=== PATIENT | male | born 1990 | race Caucasian/White ===

== ENCOUNTER 2017-05-24 14:25 | Observation (INO) | payer OTHER ==
[2017-05-24] MEDS ORDERED: SODIUM CHLORIDE 0.9% 1,000 ML IV STA (14:55)
--- NOTE | 2017-05-24 15:05 | ED ---
General Adult HPI - General Chief complaint: Dental/Oral Stated complaint: Headache Time Seen by Provider: 05/24/17 14:42 Source: patient, RN notes reviewed Mode of arrival: ambulatory Limitations: no limitations - History of Present Illness Initial comments: Chief complaint and history of present illness a 27-year-old male with multiple complaints. The patient reports initially started off with a left earache 2 weeks ago after several days it went away. For the past 5 days he is complaining of discomfort to his teeth and left sublingual area. Now he has discomfort at the angle of the left jaw. Also discomfort to his left trapezius muscle causing a headache. No nausea no vomiting no fever no injuries. - Related Data Home Medications Medication Instructions Recorded Confirmed No Known Home Medications [No 05/24/17 05/24/17 Known Home Medications] Allergies Allergy/AdvReac Type Severity Reaction Status Date / Time acetaminophen [From Tylenol] AdvReac Unknown Verified 05/24/17 14:45 Review of Systems ROS Statement: Those systems with pertinent positive or pertinent negative responses have been documented in the HPI. Review of systems patient complains of headache on the left side of his head with left trapezius muscle discomfort increased with palpation. Also left teeth pain no visual acuity changes angle of the jaw on the left side without injury also is uncomfortable. Tenderness under the angle of the jaw without inflammation. No complaint of nausea vomiting or fever. No neuro deficits. All systems reviewed. 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 He reports needing transfusions on occasion when his hemoglobin drops 7. Has not needed one for a long time. This surgeries include splenectomy and cholecystectomy at the age 5 for 70 Remember. He did have gallstones time. Patient has had hand surgery because he punched some glass. The patient has adopted does not know his family history. He does not take Tylenol because of a splenectomy. The patient does smoke strongly encouraged to stop, denies alcohol use. Denies being exposed to chemicals at home or at work. ROS Other: All systems not noted in ROS Statement are negative. Past Medical History Additional Past Medical History / Comment(s): pyruvate kinase deficency , degenerative disc disorder History of Any Multi-Drug Resistant Organisms: None Reported Past Surgical History: Cholecystectomy Additional Past Surgical History / Comment(s): splenectomy Past Psychological History: No Psychological Hx Reported Smoking Status: Current every day smoker Past Alcohol Use History: Occasional Past Drug Use History: Marijuana General Exam - General Exam Comments Initial Comments: General: The patient is awake and alert, in because of complaints discomfort to the left side of his face. Vital signs temperature 98.0 pulse 97 respiratory rate is 16 pulse ox on percent room air blood pressure 145/73 Eye: Pupils are equal, round and reactive to light, extra-ocular movements are intact ; there is normal conjunctiva bilaterally. No signs of icterus. Ears, nose, mouth and throat: There are moist mucous membranes and no oral lesions. Teeth are very good no signs of decay, no cavities, no filled teeth. Pain when he clicks teeth Neck: Patient has complaint of tenderness at the angle of his left jaw. Also in the submandibular area left side no palpable lymph nodes. Cardiovascular: There is a regular rate and rhythm. No murmur, rub or gallop is appreciated. Respiratory: Lungs are clear to auscultation, respirations are non-labored, breath sounds are equal. No wheezes, stridor, rales, or rhonchi. Gastrointestinal: Soft, non-distended, non-tender abdomen without masses or organomegaly noted. There is no rebound or guarding present. No CVA tenderness. Bowel sounds are unremarkable. Back: There is no tenderness to palpation in the midline. There is no obvious deformity. No rashes noted. Musculoskeletal: Normal ROM, no tenderness, There is no pedal edema. There is no calf tenderness or swelling. Sensation intact. Pulses equal bilaterally 2+. Neurological: CN II-XII intact, There are no obvious motor or sensory deficits. Coordination appears grossly intact. Speech is normal. No focal or lateralizing findings Skin: Skin is warm and dry and no rashes or lesions are noted. No skin rashes Limitations: no limitations Course Vital Signs 05/24/17 05/24/17 14:35 16:06 Temperature 98 F Pulse Rate 97 86 Respiratory 16 18 Rate Blood Pressure 145/73 132/74 O2 Sat by Pulse 100 98 Oximetry Medical Decision Making - Medical Decision Making he requests a [place] for pain which he has taken before. The patient's labs show white count 20.9 hemoglobin 9 hematocrit 29.8. Amylase / lipase are within normal limits. Hand done differential on lab copy. Patient does have a history of 18 H deficiency. INR 1.0. Potassium 4.2 with a BUN 14 creatinine 0.65 and GFR greater than 60. Total bilirubin elevated at 2.9. CT the brain was done and reviewed by radiologist his findings are there is no acute intracranial hemorrhage, mass effect, or midline shift identified. The ventricles and sulci within normal limits in size. Probable choroidal fissure cyst on the right. The globes are intact and the visualized sinuses are remarkable for inflammatory change in the bilateral maxillary sinus, ethmoid air cells. Impression no acute intracranial hemorrhage, mass effect or midline shift seen. As read by Dr. Jalloh I discussed the case with on-call hospitalist Dr. Blood. He suggests starting the patient on Unasyn. He will determine consults after evaluation. - Lab Data Result diagrams: 05/24/17 15:05 05/24/17 15:05 Lab Results 05/24/17 05/24/17 05/24/17 Range/Units 15:05 15:05 15:05 WBC 20.9 H (3.8-10.6) k/uL RBC 2.58 L (4.30-5.90) m/uL Hgb 9.2 L (13.0-17.5) gm/dL Hct 29.8 L (39.0-53.0) % MCV 115.5 H (80.0-100.0) fL MCH 35.6 H (25.0-35.0) pg MCHC 30.8 L (31.0-37.0) g/dL RDW 14.5 (11.5-15.5) % Plt Count 723 H (150-450) k/uL Neutrophils % (Manual) 64 % Lymphocytes % (Manual) 21 % Monocytes % (Manual) 9 % Eosinophils % (Manual) 5 % Myelocytes % 2 % Neutrophils # (Manual) 13.38 H (1.3-7.7) k/uL Lymphocytes # (Manual) 4.39 (1.0-4.8) k/uL Monocytes # (Manual) 1.88 H (0-1.0) k/uL Eosinophils # (Manual) 1.05 H (0-0.7) k/uL Myelocytes # (Manual) 0.42 H (0) k/uL Nucleated RBCs 1 H (0-0) /100 WBC Manual Slide Review Performed Dohle Bodies Present Large Platelets Present Polychromasia Present Macrocytosis Marked Crenated Cell Present PT (9.0-12.0) sec INR (<1.2) Sodium 141 (137-145) mmol/L Potassium 4.2 (3.5-5.1) mmol/L Chloride 108 H (98-107) mmol/L Carbon Dioxide 24 (22-30) mmol/L Anion Gap 9 mmol/L BUN 14 (9-20) mg/dL Creatinine 0.65 L (0.66-1.25) mg/dL Est GFR (MDRD) Af Amer >60 (>60 ml/min/1.73 sqM) Est GFR (MDRD) Non-Af >60 (>60 ml/min/1.73 sqM) Glucose 91 (74-99) mg/dL Plasma Lactic Acid Dilip 0.7 (0.7-2.0) mmol/L Calcium 9.5 (8.4-10.2) mg/dL Total Bilirubin 2.9 H (0.2-1.3) mg/dL AST 26 (17-59) U/L ALT 37 (21-72) U/L Alkaline Phosphatase 82 (38-126) U/L Total Protein 7.8 (6.3-8.2) g/dL Albumin 4.8 (3.5-5.0) g/dL Amylase 51 (30-110) U/L Lipase 127 (23-300) U/L 05/24/17 Range/Units 15:05 WBC (3.8-10.6) k/uL RBC (4.30-5.90) m/uL Hgb (13.0-17.5) gm/dL Hct (39.0-53.0) % MCV (80.0-100.0) fL MCH (25.0-35.0) pg MCHC (31.0-37.0) g/dL RDW (11.5-15.5) % Plt Count (150-450) k/uL Neutrophils % (Manual) % Lymphocytes % (Manual) % Monocytes % (Manual) % Eosinophils % (Manual) % Myelocytes % % Neutrophils # (Manual) (1.3-7.7) k/uL Lymphocytes # (Manual) (1.0-4.8) k/uL Monocytes # (Manual) (0-1.0) k/uL Eosinophils # (Manual) (0-0.7) k/uL Myelocytes # (Manual) (0) k/uL Nucleated RBCs (0-0) /100 WBC Manual Slide Review Dohle Bodies Large Platelets Polychromasia Macrocytosis Crenated Cell PT 10.2 (9.0-12.0) sec INR 1.0 (<1.2) Sodium (137-145) mmol/L Potassium (3.5-5.1) mmol/L Chloride (98-107) mmol/L Carbon Dioxide (22-30) mmol/L Anion Gap mmol/L BUN (9-20) mg/dL Creatinine (0.66-1.25) mg/dL Est GFR (MDRD) Af Amer (>60 ml/min/1.73 sqM) Est GFR (MDRD) Non-Af (>60 ml/min/1.73 sqM) Glucose (74-99) mg/dL Plasma Lactic Acid Dilip (0.7-2.0) mmol/L Calcium (8.4-10.2) mg/dL Total Bilirubin (0.2-1.3) mg/dL AST (17-59) U/L ALT (21-72) U/L Alkaline Phosphatase (38-126) U/L Total Protein (6.3-8.2) g/dL Albumin (3.5-5.0) g/dL Amylase (30-110) U/L Lipase (23-300) U/L Disposition Clinical Impression: Pyruvate kinase deficiency, Sinusitis, acute maxillary Disposition: ADMITTED IP TO THIS [facility] Condition: Fair Referrals: None,Stated [Primary Care Provider] - 1-2 days
[2017-05-24 15:28] LABS: Prothrombin Time 10.2 sec (9.0-12.0)
[2017-05-24 15:30] LABS: ALT 37 U/L (21-72); AST 26 U/L (17-59); Alkaline Phosphatase 82 U/L (38-126); Amylase 51 U/L (30-110); Anion Gap 9 mmol/L; Blood Urea Nitrogen 14 mg/dL (9-20); CHCM 32.2; Calcium 9.5 mg/dL (8.4-10.2); Carbon Dioxide 24 mmol/L (22-30); Chloride 108 mmol/L (98-107); Glucose 91 mg/dL (74-99); HCT 29.8 % (39.0-53.0); HGB 9.2 gm/dL (13.0-17.5); MCH 35.6 pg (25.0-35.0); MCHC 30.8 g/dL (31.0-37.0); MCV 115.5 fL (80.0-100.0); Macrocytosis Marked; Mean Platelet Volume 8.3; Non-African American GFR(MDRD) >60 (>60 ml/min/1.73 sqM); Potassium 4.2 mmol/L (3.5-5.1); RBC 2.58 m/uL (4.30-5.90); RDW 14.5 % (11.5-15.5); Sodium 141 mmol/L (137-145); Total Bilirubin 2.9 mg/dL (0.2-1.3); Total Protein 7.8 g/dL (6.3-8.2); WBC (Perox) 21.66
--- NOTE | 2017-05-24 15:37 | CT ---
EXAMINATION TYPE: CT brain wo con DATE OF EXAM: 05/24/2017 COMPARISON: NONE HISTORY: Headaches x [address] DLP: 1049.30 mGycm. Automated Exposure Control for Dose Reduction was Utilized. TECHNIQUE: CT scan of the head is performed without contrast. FINDINGS: There is no acute intracranial hemorrhage, mass effect, or midline shift identified. The ventricles and sulci are within normal limits in size. Probable choroidal fissure cyst on the right. The globes are intact and the visualized sinuses are remarkable for inflammatory change in the bilat eral maxillary sinus, ethmoid air cells.. IMPRESSION: No acute intracranial hemorrhage, mass effect, or midline shift is seen.
[2017-05-24 15:42] LABS: Add Differential Manual Differential
[2017-05-24 15:45] LABS: Myelocytes % 2 %; Nucleated Red Blood Cells 1 /100 WBC (0-0); Total Cells Counted 200
[2017-05-24 15:46] LABS: Crenated RBC Present; Dohle Bodies Present; Manual Review Performed; Polychromasia Present; WBC 20.9 k/uL (3.8-10.6)
[2017-05-24 15:48] LABS: Large Platelets Present
[2017-05-24] MEDS ORDERED: HYDROcodone/APAP 5-325MG 1 EACH TAB PO STA (16:23)
[2017-05-24] MEDS ORDERED: IBUPROFEN 400 MG TAB PO PRN (17:00)
[2017-05-24] MEDS ORDERED: HYDROcodone/APAP 5-325MG 1 EACH TAB PO PRN (17:00)
[2017-05-24] MEDS ORDERED: NALOXONE 0.4 MG/ML 1 ML VIAL IV PRN (17:00)
[2017-05-24] MEDS ORDERED: AMPICILLIN-SULBACTAM 3 GM in SODIUM CHLORIDE 0.9% 100 ML IVPB STA (17:08)
[2017-05-24 18:17] VITALS: BMI 27.3
[2017-05-24] MEDS: SODIUM CHLORIDE 0.9% 1,000 ML IV SCH (18:21)
[2017-05-24] MEDS: KETOROLAC 30 MG/ML 1 ML VIAL IVP PRN (18:42)
[2017-05-24] MEDS: HYDROcodone/APAP 7.5-325MG 1 EACH TAB PO PRN (21:43)
[2017-05-25] MEDS: AMPICILLIN-SULBACTAM 3 GM in SODIUM CHLORIDE 0.9% 100 ML IVPB SCH ×3 (01:43→18:15)
[2017-05-25] MEDS: SODIUM CHLORIDE 0.9% 1,000 ML IV SCH ×3 (01:44→20:08)
[2017-05-25] MEDS: KETOROLAC 30 MG/ML 1 ML VIAL IVP PRN ×3 (01:49→20:09)
[2017-05-25] MEDS: HYDROcodone/APAP 7.5-325MG 1 EACH TAB PO PRN ×4 (02:39→22:44)
[2017-05-25 07:17] LABS: CH 36.5; CHCM 31.1; HCT 26.3 % (39.0-53.0); HDW 2.79; HGB 8.1 gm/dL (13.0-17.5); Hypochromasia Slight; MCH 36.3 pg (25.0-35.0); MCHC 30.8 g/dL (31.0-37.0); MCV 118.1 fL (80.0-100.0); Macrocytosis Marked; Mean Platelet Volume 8.3; RBC 2.23 m/uL (4.30-5.90); RDW 14.6 % (11.5-15.5); WBC (Perox) 16.97
[2017-05-25 07:43] LABS: ALT 40 U/L (21-72); AST 32 U/L (17-59); Alkaline Phosphatase 67 U/L (38-126); Anion Gap 7 mmol/L; Blood Urea Nitrogen 16 mg/dL (9-20); Calcium 9.1 mg/dL (8.4-10.2); Carbon Dioxide 27 mmol/L (22-30); Chloride 109 mmol/L (98-107); Glucose 96 mg/dL (74-99); Non-African American GFR(MDRD) >60 (>60 ml/min/1.73 sqM); Potassium 4.5 mmol/L (3.5-5.1); Sodium 143 mmol/L (137-145); Total Bilirubin 2.7 mg/dL (0.2-1.3); Total Protein 6.3 g/dL (6.3-8.2)
[2017-05-25 08:25] LABS: Add Differential Manual Differential
[2017-05-25 08:27] LABS: Myelocytes % 1 %; Nucleated Red Blood Cells 1 /100 WBC (0-0); Total Cells Counted 200
[2017-05-25 08:28] LABS: Manual Review Performed; Polychromasia Present
[2017-05-25] MEDS ORDERED: VANCOMYCIN IV PER PHARMACY 1 EACH MISC MISCELLANE PRN (11:30)
[2017-05-25] MEDS ORDERED: VANCOMYCIN 1,750 MG in SODIUM CHLORIDE 0.9% 250 ML IVPB ONE (12:30)
--- NOTE | 2017-05-25 15:46 | CT ---
EXAMINATION TYPE: CT facial bones wo con DATE OF EXAM: 05/25/2017 COMPARISON: NONE HISTORY: 27-year-old male with dental pain, evaluate for infection. TECHNIQUE: Contiguous axial scanning of the facial bones without IV contrast. Coronal reconstructions performed. CT DLP: 789.4 mGycm Automated exposure control for dose reduction was used. FINDINGS: Some prominent submental lymph nodes measuring up to 8 mm on either side. Right greater than left sub mandibular space lymph nodes are also prominent measuring 1 cm on the right and 7 mm and the left. Fi ndings are likely reactive/post inflammatory. Polyps or mucosal retention cysts within the inferior right maxillary sinus and mild mucosal thickeni ng left maxillary sinus. Wxhy-bu-bxcolkcy mucosal thickening throughout the ethmoid air cells. There is also rightward nasal septal deviation noted. Visualized intracranial structures show no gross abnormality. The mastoid air cells are well pneumatized. There is a prominent periapical lucency involving the right first maxillary incisor, axial image 34. IMPRESSION: 1. A 7 MM PERIAPICAL LUCENCY/ABSCESS INVOLVING THE RIGHT FIRST MAXILLARY INCISOR. 2. 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
--- NOTE | 2017-05-25 18:31 | P.HPIM ---
History of Present Illness H&P Date: 05/25/17 Chief Complaint: Headaches and mandibular pain This is a 27-year-old gentleman with history of pyruvate kinase deficiency comes in the hospital with complains of chills and Rigors for the last few days. Patient states that he has been noting significant amount of bleeding when he brushes his teeth. Patient also complains of pain in his submandibular area or the last week. States that the pain has worsened and radiated to back of his neck and the is said Patient states that he has had hearing difficulty or 2 weeks ago after URI however that has resolved Denies having any pain on the front of his face however patient states to have significant pain in the submandibular region Denies having any change in vision nausea vomiting chest pain difficulty breathing abdominal pain diarrhea urinary urgency or frequency Patient apparently gets lip transfusions due to anemia from pyruvate kinase deficiency Review of systems 14 point review of systems was done nonpertinent then as mentioned above Physical exam Gen. appearance oriented 3 in no distress Neck is supple no JVD Face tenderness in the left submandibular region Poor dentition No maxillary pressure no significant lymphadenopathy could be palpated posteriorly There is a point tenderness in the occiput on the left Lungs good air entry clear to auscultation no rhonchi or wheezing Heart S1-S2 heard regular rate and rhythm no murmurs appreciated Abdomen is soft nontender no organomegaly bowel sounds are intact Neurologically cranial nerves II-12 grossly intact no focal motor or sensory deficits noted Skin no abnormalities appreciated Assessment and plan #1 sepsis secondary to odontogenic infection #2 pyruvate kinase deficiency #3 anemia rule out underlying deficiencies #4 ongoing tobacco use #5 occipital neuronitis Plan Pain control Continue antibiotics Blood cultures are positive repeat blood cultures after 48 hours Empirically is placed on vancomycin and Unasyn Oral surgery consultation will be obtained. Past Medical History Additional Past Medical History / Comment(s): pyruvate kinase deficency , degenerative disc disorder History of Any Multi-Drug Resistant Organisms: None Reported Past Surgical History: Cholecystectomy, Tonsillectomy Additional Past Surgical History / Comment(s): splenectomy, left hand reconstructive surgery for punching a window out. Additional Past Anesthesia/Blood Transfusion Reaction / Comment(s): pt has had no problems with both blood transfusions and anesthesia Past Psychological History: Anxiety, Depression Smoking Status: Current every day smoker Past Alcohol Use History: Occasional Past Drug Use History: Marijuana Medications and Allergies Home Medications Medication Instructions Recorded Confirmed Type No Known Home Medications [No 09/09/17 09/09/17 History Known Home Medications] Allergies Allergy/AdvReac Type Severity Reaction Status Date / Time acetaminophen [From Tylenol] AdvReac Unknown Verified 05/24/17 14:45 Physical Exam Vitals: Vital Signs Temp Pulse Resp BP Pulse Ox 05/25/17 16:00 98.2 F 80 16 139/74 100 05/25/17 12:00 89 16 05/25/17 08:00 98.0 F 89 16 134/70 100 05/25/17 07:53 71 18 05/25/17 04:00 98.2 F 71 18 119/56 95 05/25/17 03:16 18 05/25/17 00:00 18 05/24/17 20:00 18 05/24/17 19:36 98.1 F 83 18 128/76 100 05/24/17 18:33 88 16 Intake and Output 05/25/17 05/25/17 05/25/17 06:59 14:59 22:59 Intake Total 830 Balance 830 Intake: IV 480 Sodium Chloride 0.9% 1, 480 000 ml @ 80 mls/hr IV . [id number] [facility] Rx#:[id number] Oral 350 Other: Voiding Method Toilet Toilet Toilet # Voids 3 3 Results CBC & Chem 7: 05/25/17 06:35 05/25/17 06:35 Labs: Abnormal Lab Results - Last 24 Hours (Table) 05/25/17 05/25/17 Range/Units 06:35 06:35 WBC 16.0 H (3.8-10.6) k/uL RBC 2.23 L (4.30-5.90) m/uL Hgb 8.1 L (13.0-17.5) gm/dL Hct 26.3 L (39.0-53.0) % MCV 118.1 H (80.0-100.0) fL MCH 36.3 H (25.0-35.0) pg MCHC 30.8 L (31.0-37.0) g/dL Plt Count 682 H (150-450) k/uL Lymphocytes # (Manual) 5.76 H (1.0-4.8) k/uL Monocytes # (Manual) 1.60 H (0-1.0) k/uL Eosinophils # (Manual) 0.96 H (0-0.7) k/uL Myelocytes # (Manual) 0.16 H (0) k/uL Nucleated RBCs 1 H (0-0) /100 WBC Chloride 109 H (98-107) mmol/L Total Bilirubin 2.7 H (0.2-1.3) mg/dL Microbiology - Last 24 Hours (Table) 05/24/17 15:05 Blood Culture Gram Stain - Preliminary Blood 05/24/17 15:05 Blood Culture - Final Blood Thrombosis Risk Factor Assmnt - Choose All That Apply Any of the Below Risk Factors Present?: Yes Each Factor Represents 1 point: Oral contraceptives or hormone replacement therapy Other Risk Factors: No Thrombosis Risk Factor Assessment Total Risk Factor Score: 1 Thrombosis Risk Factor Assessment Level: Low Risk
[2017-05-25] MEDS: VANCOMYCIN 1,500 MG in SODIUM CHLORIDE 0.9% 250 ML IVPB SCH (20:08)
[2017-05-26 00:09] VITALS: RESP 18
[2017-05-26] MEDS: KETOROLAC 30 MG/ML 1 ML VIAL IVP PRN ×2 (01:51→12:01)
[2017-05-26] MEDS: AMPICILLIN-SULBACTAM 3 GM in SODIUM CHLORIDE 0.9% 100 ML IVPB SCH ×2 (01:51→10:01)
[2017-05-26] MEDS: HYDROcodone/APAP 7.5-325MG 1 EACH TAB PO PRN ×2 (03:32→09:58)
[2017-05-26] MEDS: VANCOMYCIN 1,500 MG in SODIUM CHLORIDE 0.9% 250 ML IVPB SCH ×2 (03:32→12:04)
[2017-05-26 06:39] LABS: Basophils # (A) 0.1 k/uL (0-0.2); Basophils % (A) 1 %; CH 36.6; CHCM 31.1; Eosinophils # (A) 0.7 k/uL (0-0.7); Eosinophils % (A) 5 %; HCT 25.5 % (39.0-53.0); HDW 2.75; HGB 7.8 gm/dL (13.0-17.5); Hypochromasia Slight; Luc # (Auto) 0.33; Luc % (Auto) 2; Lymphocytes # (A) 4.7 k/uL (1.0-4.8); Lymphocytes % (A) 30 %; MCH 36.2 pg (25.0-35.0); MCHC 30.7 g/dL (31.0-37.0); MCV 118.1 fL (80.0-100.0); Macrocytosis Marked; Mean Platelet Volume 8.1; Monocytes % (A) 6 %; Neutrophils # (A) 8.9 k/uL (1.3-7.7); Neutrophils % (A) 57 %; RBC 2.16 m/uL (4.30-5.90); RDW 14.8 % (11.5-15.5); WBC 15.7 k/uL (3.8-10.6); WBC (Perox) 15.48
[2017-05-26 07:02] LABS: ALT 68 U/L (21-72); AST 103 U/L (17-59); Alkaline Phosphatase 74 U/L (38-126); Anion Gap 7 mmol/L; Blood Urea Nitrogen 14 mg/dL (9-20); Calcium 9.2 mg/dL (8.4-10.2); Carbon Dioxide 27 mmol/L (22-30); Chloride 108 mmol/L (98-107); Glucose 94 mg/dL (74-99); Non-African American GFR(MDRD) >60 (>60 ml/min/1.73 sqM); Potassium 4.1 mmol/L (3.5-5.1); Sodium 142 mmol/L (137-145); Total Bilirubin 3.8 mg/dL (0.2-1.3); Total Protein 6.1 g/dL (6.3-8.2)
[2017-05-26 07:28] VITALS: BP 126/70; PULSE 76; TEMP 98.1
[2017-05-26] MEDS ORDERED: DOCUSATE 100 MG CAP PO SCH (11:00)
--- NOTE | 2017-05-26 11:07 | XR ---
EXAMINATION TYPE: XR panorex DATE OF EXAM: 05/26/2017 COMPARISON: CT facial bones dated 05/25/2017 HISTORY: Concern for dental abscess. Pain in the mandibular region. TECHNIQUE: Single frontal Panorex radiograph of the maxilla and mandible was obtained. FINDINGS: Periapical lucency is seen surrounding the root of the first right maxillary incisor concer iassatou for infectious abscess. The previously noted paranasal sinus disease is better appreciated on th e CT facial bone examination dated 05/25/2017. There is no evidence of acute fracture or dislocation. Multiple dental fillings are noted as well as left first maxillary incisor dental plate. IMPRESSION: Redemonstration of right first maxillary incisor periapical lucencies/abscess as seen on the CT facial bones dated 05/25/2017.
[2017-05-26 12:50] LABS: Iron 92 ug/dL (49-181)
[2017-05-26 12:59] LABS: % Iron Saturation 42.6 % (20-50); Total Iron Binding Capacity 216 ug/dL (261-462)
[2017-05-26 13:42] LABS: Vitamin B12 410 pg/mL (239-931)
--- NOTE | 2017-05-26 15:04 | P.DS ---
Providers Date of admission: 05/24/17 17:00 Attending physician: Rosemary Blood Consults: 05/25/17 18:27 Consult Physician Routine Consulting Provider: Maco Barrera Consult Reason/Comments: abscess Do you want consulting provider notified?: Yes Primary care physician: Stated None Hospital Course: patient was admitted for the maxillary sinusitis and dental abscess for which patient will probably undergo dental extraction and patient will be given a prescription for Augmentin for about a week and patient can use over-the- counter nonsteroidal anti-inflammatory for pain. Patient's hemoglobin is 7.9 and I do not believe patient will require blood transfusion in spite of pyruvate kinase deficiency.patient will be discharged later in the day. #1 sepsis secondary to odontogenic infection #2 pyruvate kinase deficiency #3 anemia rule out underlying deficiencies #4 ongoing tobacco use #5 occipital neuronitis Patient Condition at Discharge: Fair Plan - Discharge Summary New Discharge Prescriptions: New Amoxic-Pot Clav 875-125Mg [Augmentin 875-125] 1 tab PO Q12HR #14 tablet Discharge Medication List Amoxic-Pot Clav 875-125Mg [Augmentin 875-125] 1 tab PO Q12HR #14 tablet [Rx] Follow up Appointment(s)/Referral(s): None,Stated [Primary Care Provider] - 1-2 days (Patient is being discharged and has an appointment at 2pm with Dr. Dejesus to get his tooth pulled.) Patient Instructions/Handouts: Sinusitis (GEN) Discharge Disposition: HOME SELF-CARE
[2017-05-26] MEDS ORDERED: VANCOMYCIN TROUGH DUE 1 EACH MISC MISCELLANE ONE (19:00)
== END 2017-05-26 14:10 | disposition home or self-care (01) ==
LOC: EC 14:25 → 3OBS 17:00
PROVIDERS: ADMIT Hospitalist; ATTEND Hospitalist
DX: A41.9 Sepsis, unspecified organism (principal); K04.7 Periapical abscess without sinus; F17.200 Nicotine dependence, unspecified, uncomplicated; G58.9 Mononeuropathy, unspecified; D55.2 Anemia due to disorders of glycolytic enzymes; Z88.6 Allergy status to analgesic agent; J01.00 Acute maxillary sinusitis, unspecified; Z90.81 Acquired absence of spleen; F41.9 Anxiety disorder, unspecified; F32.9 Major depressive disorder, single episode, unspecified
CPT/HCPCS: 96361 ×2; 96366 ×2; 96367; 96375; 96376 ×2; 96365; 99285; 36415; 80053 ×3; 84443; 82607; 82150; 83540; 83550; 83605; 83690; 85025 ×3; 85610; 87040 ×2; 87077; 87186; 70355; 70486; 70450; G0378 ×3; J3370 ×2; J1885 ×3; J0295 ×3

== ENCOUNTER 2018-06-16 18:34 | Emergency (ER) | payer OTHER ==
[2018-06-16 18:42] VITALS: RESP 18
[2018-06-16] MEDS ORDERED: ONDANSETRON 4 MG/2 ML VIAL IVP STA (19:58)
[2018-06-16] MEDS ORDERED: SODIUM CHLORIDE 0.9% 1,000 ML IV STA (19:58)
[2018-06-16] MEDS ORDERED: KETOROLAC 30 MG/ML 1 ML VIAL IVP STA (19:58)
[2018-06-16 20:16] LABS: Basophils # (A) 0.2 k/uL (0-0.2); Basophils % (A) 1 %; Eosinophils # (A) 0.8 k/uL (0-0.7); Eosinophils % (A) 4 %; HCT 35.7 % (39.0-53.0); HGB 11.1 gm/dL (13.0-17.5); Hypochromasia Slight; Lymphocytes # (A) 4.9 k/uL (1.0-4.8); Lymphocytes % (A) 25 %; MCV 122.5 fL (80.0-100.0); Macrocytosis Marked; Mean Platelet Volume 7.6; Monocytes # (A) 1.9 k/uL (0-1.0); Monocytes % (A) 9 %; Neutrophils # (A) 11.4 k/uL (1.3-7.7); Neutrophils % (A) 58 %; Platelet Count 594 k/uL (150-450); RBC 2.91 m/uL (4.30-5.90); RDW 14.2 % (11.5-15.5); WBC 19.7 k/uL (3.8-10.6)
--- NOTE | 2018-06-16 20:16 | ED ---
General Adult HPI - General Chief complaint: Upper Respiratory Infection Stated complaint: cough, congestion Time Seen by Provider: 06/16/18 18:58 Source: patient Mode of arrival: ambulatory Limitations: no limitations - History of Present Illness Initial comments: 28-year-old male patient presents to the emergency department today with multiple complaints. Patient reports that he has had upper respiratory infection for the last 2 weeks. Patient states over the last week the symptoms have worsened. States he is having nasal congestion and drainage, cough, and night sweats. Patient states his cough is dry with no sputum production. He denies any known or documented fevers. Patient states that today he developed nausea and left upper quadrant abdominal pain. Patient states he has had several episodes of diarrhea today presence of bright red blood. Patient denies any history of blood in the stool. States that he does have intermittent episodes of abdominal pain but has never had a evaluated before. Patient states today his ribs and back are sore from coughing so much. Patient denies any recent rash, shortness breath, back pain, numbness, tingling, dizziness, weakness, hematuria, dysuria, urinary urgency, urinary frequency, headache, visual changes, or any other complaints. Patient denies any alcohol use, states he does smoke marijuana occasionally. - Related Data Home Medications Medication Instructions Recorded Confirmed Benzonatate [Tessalon Perles] 100 mg PO TID 06/16/18 06/16/18 Doxycycline Hyclate 100 mg PO BID 06/16/18 06/16/18 Previous Rx's Medication Instructions Recorded Cefdinir 300 mg PO Q12HR #20 cap 06/16/18 Allergies Allergy/AdvReac Type Severity Reaction Status Date / Time acetaminophen [From Tylenol] AdvReac Unknown Verified 06/16/18 20:05 Review of Systems ROS Statement: Those systems with pertinent positive or pertinent negative responses have been documented in the HPI. ROS Other: All systems not noted in ROS Statement are negative. Past Medical History Additional Past Medical History / Comment(s): pyruvate kinase deficency , degenerative disc disorder History of Any Multi-Drug Resistant Organisms: None Reported Past Surgical History: Cholecystectomy, Tonsillectomy Additional Past Surgical History / Comment(s): splenectomy, left hand reconstructive surgery for punching a window out. Additional Past Anesthesia/Blood Transfusion Reaction / Comment(s): pt has had no problems with both blood transfusions and anesthesia Past Psychological History: Anxiety, Depression Smoking Status: Current every day smoker Past Alcohol Use History: Occasional Past Drug Use History: Marijuana General Exam Limitations: no limitations General appearance: alert, in no apparent distress, other (This is a well- developed, well-nourished adult male patient in no acute distress. Vital signs upon presentation are temperature 98.6F, pulse 95, respirations 18, blood pressure 132/78, pulse ox 97% on room air.) Eye exam: Present: normal appearance, PERRL, EOMI. Absent: scleral icterus, conjunctival injection, periorbital swelling ENT exam: Present: normal exam, normal oropharynx, mucous membranes moist Respiratory exam: Present: normal lung sounds bilaterally. Absent: respiratory distress, wheezes, rales, rhonchi, stridor Cardiovascular Exam: Present: regular rate, normal rhythm, normal heart sounds. Absent: systolic murmur, diastolic murmur, rubs, gallop, clicks GI/Abdominal exam: Present: soft, normal bowel sounds. Absent: distended, tenderness, guarding, rebound, rigid Neurological exam: Present: alert, oriented X3, CN II-XII intact Psychiatric exam: Present: normal affect, normal mood Skin exam: Present: warm, dry, intact, normal color. Absent: rash Course Vital Signs 06/16/18 06/16/18 06/16/18 18:40 19:56 21:38 Temperature 98.6 F Pulse Rate 95 92 83 Respiratory 18 18 18 Rate Blood Pressure 132/78 130/63 130/73 O2 Sat by Pulse 97 96 95 Oximetry 06/16/18 22:17 Temperature 99.2 F Pulse Rate 79 Respiratory 18 Rate Blood Pressure 120/97 O2 Sat by Pulse 94 L Oximetry EKG Findings - EKG Comments: EKG Findings:: EKG obtained at 2007 shows normal sinus rhythm with a ventricular rate of 91, RI interval 138, QRS duration 92, QT 348, QTC 428. No evidence of ST elevation or depression. Medical Decision Making - Medical Decision Making 28-year-old male patient presents to the emergency department today for multiple complaints. He is complaining of upper respiratory symptoms 2 weeks as well as abdominal pain and GI bleeding. Physical examination was unremarkable. Abdomen was soft and nontender. Lungs are clear to auscultation with good air movement. Labs reviewed and was negative for occult blood. Patient did have some CBC abnormalities related to his history of pyruvate kinase deficiency. Chest x-ray was negative for any evidence of pneumonia. EKG was normal sinus rhythm. Patient's symptoms are consistent with sinusitis. Patient has had splenectomy so we will start patient on Cefdinir for upper respiratory infection. Patient is instructed to follow-up with gastroenterology for further evaluation of his chronic abdominal pain and diarrhea. He is instructed to follow-up with his primary care physician for recheck in 1-2 days. Return parameters discussed in detail. He verbalizes understanding and agrees with this plan. - Lab Data Result diagrams: 06/16/18 19:55 06/16/18 19:55 Lab Results 06/16/18 06/16/18 06/16/18 Range/Units 19:55 19:55 19:55 WBC 19.7 H (3.8-10.6) k/uL RBC 2.91 L (4.30-5.90) m/uL Hgb 11.1 L (13.0-17.5) gm/dL Hct 35.7 L (39.0-53.0) % MCV 122.5 H (80.0-100.0) fL MCH 38.0 H (25.0-35.0) pg MCHC 31.0 (31.0-37.0) g/dL RDW 14.2 (11.5-15.5) % Plt Count 594 H (150-450) k/uL Neutrophils % 58 % Lymphocytes % 25 % Monocytes % 9 % Eosinophils % 4 % Basophils % 1 % Neutrophils # 11.4 H (1.3-7.7) k/uL Lymphocytes # 4.9 H (1.0-4.8) k/uL Monocytes # 1.9 H (0-1.0) k/uL Eosinophils # 0.8 H (0-0.7) k/uL Basophils # 0.2 (0-0.2) k/uL Manual Slide Review Performed Polychromasia Present Hypochromasia Slight Poikilocytosis (manual Present Macrocytosis Marked PT 9.6 (9.0-12.0) sec INR 1.0 (<1.2) APTT 24.5 (22.0-30.0) sec Sodium 141 (137-145) mmol/L Potassium 4.6 (3.5-5.1) mmol/L Chloride 104 (98-107) mmol/L Carbon Dioxide 29 (22-30) mmol/L Anion Gap 8 mmol/L BUN 12 (9-20) mg/dL Creatinine 0.66 (0.66-1.25) mg/dL Est GFR (CKD-EPI)AfAm >90 (>60 ml/min/1.73 sqM) Est GFR (CKD-EPI)NonAf >90 (>60 ml/min/1.73 sqM) Glucose 95 (74-99) mg/dL Calcium 10.0 (8.4-10.2) mg/dL Total Bilirubin 3.5 H (0.2-1.3) mg/dL AST 42 (17-59) U/L ALT 41 (21-72) U/L Alkaline Phosphatase 85 (38-126) U/L Total Protein 7.9 (6.3-8.2) g/dL Albumin 4.7 (3.5-5.0) g/dL Amylase 68 (30-110) U/L Lipase 77 (23-300) U/L Urine Color Urine Appearance (Clear) Urine pH (5.0-8.0) Ur Specific [place] (1.001-1.035) Urine Protein (Negative) Urine Glucose (UA) (Negative) Urine Ketones (Negative) Urine Blood (Negative) Urine Nitrite (Negative) Urine Bilirubin (Negative) Urine Urobilinogen (<2.0) mg/dL Ur Leukocyte Esterase (Negative) Stool Occult Blood (Negative) 06/16/18 06/16/18 Range/Units 19:55 20:09 WBC (3.8-10.6) k/uL RBC (4.30-5.90) m/uL Hgb (13.0-17.5) gm/dL Hct (39.0-53.0) % MCV (80.0-100.0) fL MCH (25.0-35.0) pg MCHC (31.0-37.0) g/dL RDW (11.5-15.5) % Plt Count (150-450) k/uL Neutrophils % % Lymphocytes % % Monocytes % % Eosinophils % % Basophils % % Neutrophils # (1.3-7.7) k/uL Lymphocytes # (1.0-4.8) k/uL Monocytes # (0-1.0) k/uL Eosinophils # (0-0.7) k/uL Basophils # (0-0.2) k/uL Manual Slide Review Polychromasia Hypochromasia Poikilocytosis (manual Macrocytosis PT (9.0-12.0) sec INR (<1.2) APTT (22.0-30.0) sec Sodium (137-145) mmol/L Potassium (3.5-5.1) mmol/L Chloride (98-107) mmol/L Carbon Dioxide (22-30) mmol/L Anion Gap mmol/L BUN (9-20) mg/dL Creatinine (0.66-1.25) mg/dL Est GFR (CKD-EPI)AfAm (>60 ml/min/1.73 sqM) Est GFR (CKD-EPI)NonAf (>60 ml/min/1.73 sqM) Glucose (74-99) mg/dL Calcium (8.4-10.2) mg/dL Total Bilirubin (0.2-1.3) mg/dL AST (17-59) U/L ALT (21-72) U/L Alkaline Phosphatase (38-126) U/L Total Protein (6.3-8.2) g/dL Albumin (3.5-5.0) g/dL Amylase (30-110) U/L Lipase (23-300) U/L Urine Color Yellow Urine Appearance Clear (Clear) Urine pH 6.0 (5.0-8.0) Ur Specific [place] 1.017 (1.001-1.035) Urine Protein Negative (Negative) Urine Glucose (UA) Negative (Negative) Urine Ketones Negative (Negative) Urine Blood Negative (Negative) Urine Nitrite Negative (Negative) Urine Bilirubin Negative (Negative) Urine Urobilinogen <2.0 (<2.0) mg/dL Ur Leukocyte Esterase Negative (Negative) Stool Occult Blood Negative (Negative) - Radiology Data Radiology results: report reviewed, image reviewed Two-view x-ray of the chest is obtained. Report was reviewed in its entirety. Impression by Dr. Hank Andersen shows no acute process. KUB x-ray of the abdomen was obtained. Report was reviewed in its entirety. Impression by Dr. Hank Andersen shows negative examination. Disposition Clinical Impression: Upper respiratory disease, Colitis Disposition: HOME SELF-CARE Condition: Good Instructions: Sinusitis (ED), Upper Respiratory Infection (ED) Additional Instructions: Take medications as directed. Increase fluids. Rest. Follow-up with her primary care physician for recheck in 1-2 days. Return immediately for any new , worsening, or concerning symptoms. Prescriptions: Cefdinir 300 mg PO Q12HR #20 cap Is patient prescribed a controlled substance at d/c from ED?: No Referrals: Trudy Capellan MD [STAFF PHYSICIAN] - 1-2 days Time of Disposition: 21:52
[2018-06-16 20:24] LABS: ALT 41 U/L (21-72); AST 42 U/L (17-59); Albumin 4.7 g/dL (3.5-5.0); Alkaline Phosphatase 85 U/L (38-126); Amylase 68 U/L (30-110); Anion Gap 8 mmol/L; Blood Urea Nitrogen 12 mg/dL (9-20); Carbon Dioxide 29 mmol/L (22-30); Chloride 104 mmol/L (98-107); Glucose 95 mg/dL (74-99); Lipase 77 U/L (23-300); Potassium 4.6 mmol/L (3.5-5.1); Sodium 141 mmol/L (137-145); Total Bilirubin 3.5 mg/dL (0.2-1.3); Total Protein 7.9 g/dL (6.3-8.2)
[2018-06-16 20:27] LABS: Partial Thromboplastin Time 24.5 sec (22.0-30.0); Prothrombin Time 9.6 sec (9.0-12.0)
--- NOTE | 2018-06-16 20:59 | XR ---
EXAMINATION: XR chest 2V DATE AND TIME: 06/16/2018 8:35 PM CLINICAL INDICATION: abdominal pain TECHNIQUE: PA and lateral COMPARISON: 04/06/2015 FINDINGS: The lungs are clear. The pleural spaces are negative. The cardiac silhouette is not enlarged. The remainder of the mediastinal silhouette is unremarkable. The skeletal structures and soft tissues are negative for acute findings. IMPRESSION: NO ACUTE PROCESS.
--- NOTE | 2018-06-16 21:00 | XR ---
EXAMINATION TYPE: XR KUB views DATE OF EXAM: 06/16/2018 COMPARISON: NONE HISTORY: Pain TECHNIQUE: 2 upright views FINDINGS: No pneumoperitoneum or pneumatosis. The bowel gas pattern is normal. No acute soft tissue o r skeletal findings. IMPRESSION: Negative examination
[2018-06-16 21:11] LABS: Poikilocytosis (M) Present; Polychromasia Present
[2018-06-16 21:44] LABS: Appearance,Urine Clear (Clear); Bilirubin,Urine Negative (Negative); Blood,Urine Negative (Negative); Color,Urine Yellow; Glucose,Urine (UA) Negative (Negative); Ketones,Urine Negative (Negative); Leukocyte Esterase,Urine Negative (Negative); Nitrite,Urine Negative (Negative); Protein,Urine Negative (Negative); Specific Gravity,Urine 1.017 (1.001-1.035); Urobilinogen,Urine <2.0 mg/dL (<2.0)
[2018-06-16] MEDS ORDERED: MORPHINE SULFATE 4 MG/ML SYRINGE IVP STA (21:50)
[2018-06-16 22:18] VITALS: BP 120/97; PULSE 79; TEMP 99.2
== END 2018-06-16 22:51 | disposition home or self-care (01) ==
LOC: EC 18:34
DX: J06.9 Acute upper respiratory infection, unspecified (principal); K52.9 Noninfective gastroenteritis and colitis, unspecified; R05 Cough; F17.200 Nicotine dependence, unspecified, uncomplicated; Z90.49 Acquired absence of other specified parts of digestive tract; Z98.890 Other specified postprocedural states; Z79.899 Other long term (current) drug therapy; Z88.8 Allergy status to other drugs, medicaments and biological substances
CPT/HCPCS: 36415; 93005; 80053; 82150; 83690; 85025; 85610; 85730; 82272; 81003; 87040; 71046; 74018; 99284; 96365; 96375 ×3; 96361 ×2; J2270; J2405; J0696; J1885

== ENCOUNTER 2018-09-23 16:17 | Emergency (ER) | payer OTHER ==
--- NOTE | 2018-09-23 18:10 | XR ---
EXAMINATION TYPE: XR cervical spine comp DATE OF EXAM: 09/23/2018 TECHNIQUE: Frontal, lateral, oblique, swimmers, and open mouth view of the cervical spine are obtaine d. HISTORY: Pain COMPARISON: None FINDINGS: The cervical vertebra have normal spacing and alignment. Posterior elements are intact. Tita ral foramina are widely patent. Atlantoaxial facet joint is normal. There are no cervical ribs. IMPRESSION: Normal cervical spine exam.
--- NOTE | 2018-09-23 18:11 | XR ---
EXAMINATION TYPE: XR shoulder complete RT DATE OF EXAM: 09/23/2018 COMPARISON: NONE HISTORY: Shoulder pain TECHNIQUE: 3 views FINDINGS: I see no fracture nor dislocation. Joint spaces are normal. There are no pathologic calcifi cations. IMPRESSION: Negative right shoulder exam.
[2018-09-23] MEDS ORDERED: KETOROLAC 60 MG/2 ML VIAL IM STA (18:24)
--- NOTE | 2018-09-23 18:24 | ED ---
Upper Extremity HPI - General Chief Complaint: Extremity Injury, Upper Stated Complaint: Shoulder Injury Time Seen by Provider: 09/23/18 17:13 Source: patient Mode of arrival: ambulatory Limitations: no limitations - History of Present Illness Initial Comments: 28-year-old male with past medical history of positive a kinase deficiency, asplenia presenting today for chief complaint of right shoulder pain. Patient states that 3 weeks ago he slipped on ice falling on his right shoulder. Patient noted pain at that time however it seemed to improve slightly over the past few weeks. Patient admitted to pain with range of motion denied any numbness, tingling, loss sensation or muscle weakness. Patient states that he lifted a bucket of chicken today which worsened the pain. Patient presented for evaluation. Patient denies any erythema, swelling of the right shoulder. Patient denies any dislocation. She does admit to pain extending towards the right-sided neck, patient denies any head injury or injury to the cervical spine. Remainder of ROS negative, patient denies any recent fever, chills, shortness of breath, chest pain, back pain, abdominal pain, nausea or vomiting, numbness or tingling, dysuria or hematuria, constipation or diarrhea, headaches or visual changes, or any other complaints. Upon arrival patient appears well no signs of acute distress. Vital signs within acceptable limits - Related Data Home Medications Medication Instructions Recorded Confirmed Benzonatate [Tessalon Perles] 100 mg PO TID 06/16/18 06/16/18 Doxycycline Hyclate 100 mg PO BID 06/16/18 06/16/18 Previous Rx's Medication Instructions Recorded Cefdinir 300 mg PO Q12HR #20 cap 06/16/18 Ibuprofen 800 mg PO Q8H PRN 7 Days #21 tablet 09/23/18 Allergies Allergy/AdvReac Type Severity Reaction Status Date / Time acetaminophen [From Tylenol] AdvReac Unknown Verified 09/23/18 16:51 Review of Systems ROS Statement: Those systems with pertinent positive or pertinent negative responses have been documented in the HPI. ROS Other: All systems not noted in ROS Statement are negative. Past Medical History Additional Past Medical History / Comment(s): pyruvate kinase deficency , degenerative disc disorder History of Any Multi-Drug Resistant Organisms: None Reported Past Surgical History: Cholecystectomy, Tonsillectomy Additional Past Surgical History / Comment(s): splenectomy, left hand reconstructive surgery for punching a window out. Additional Past Anesthesia/Blood Transfusion Reaction / Comment(s): pt has had no problems with both blood transfusions and anesthesia Past Psychological History: Anxiety, Depression Smoking Status: Current every day smoker Past Alcohol Use History: Rare Past Drug Use History: Marijuana General Exam - General Exam Comments Initial Comments: General: The patient is awake and alert, in no distress, and does not appear acutely ill. Eye: +3 mm pupils are equal, round and reactive to light, extra-ocular movements are intact. No nystagmus. There is normal conjunctiva bilaterally. No signs of icterus. Ears, nose, mouth and throat: There are moist mucous membranes and no oral lesions. Neck: The neck is supple, there is no tenderness or JVD. No midline tenderness to palpation of the cervical spine there is right-sided paravertebral tenderness and tension of the right trapezius muscle. Cardiovascular: There is a regular rate and rhythm. No murmur, rub or gallop is appreciated. Respiratory: Lungs are clear to auscultation, respirations are non-labored, breath sounds are equal. No wheezes, stridor, rales, or rhonchi. Musculoskeletal: Normal inspection of the right shoulder, no palpable step- offs or deformities. No erythema. No soft tissue swelling. No abrasions. Patient refuses to fully range at the right shoulder secondary to pain. Positive Neer testing. Strength 5/5 at elbow and wrist of the upper extremities equally bilaterally. Sensation intact of the upper extremities both proximal and distal to injury. No bandage anesthesia. Patient is able to make the okay , fingers crossed thumbs-up and extend at the right wrist- ulnar, median and radial nerve appear intact. Compartments are soft and compressible. Radial pulses equal bilaterally 2+. Refill less than 2 seconds. Neurological: A&O x 3. CN II-XII intact, There are no obvious motor or sensory deficits. Coordination appears grossly intact. Speech is normal. Skin: Skin is warm and dry and no rashes or lesions are noted. Psychiatric: Cooperative, appropriate mood & affect, normal judgment. Limitations: no limitations Course Vital Signs 09/23/18 09/23/18 16:52 18:54 Temperature 98.3 F 98.5 F Pulse Rate 78 75 Respiratory 18 16 Rate Blood Pressure 137/82 136/77 O2 Sat by Pulse 99 95 Oximetry Medical Decision Making - Medical Decision Making X-rays cervical spine and right shoulder returned within normal limits. Patient neurovascularly intact. This time I feel patient may have rotator cuff injury. Patient replaced and sling and given orthopedic surgery follow-up. Patient started to take ibuprofen for pain mgmt. return parameters discussed the patient patient deny questions. Patient discharged in stable condition appearing well. Discussed case with Dr. Phelps prior to discharge. Disposition Clinical Impression: Right shoulder pain, Right shoulder injury Disposition: HOME SELF-CARE Condition: Good Instructions: Shoulder Sprain (ED) Additional Instructions: Please use medication as discussed. Please follow-up with family doctor in the next 2 days, stop with orthopedic surgery in the next 2-3 days. Please use sling for comfort. Please return to emergency room if the symptoms increase or worsen or for any other concerns. Prescriptions: Ibuprofen 800 mg PO Q8H PRN 7 Days #21 tablet PRN Reason: Pain Is patient prescribed a controlled substance at d/c from ED?: No Referrals: None,Stated [Primary Care Provider] - 1-2 days Christiano Larkin MD [STAFF PHYSICIAN] - 1-2 days Time of Disposition: 18:23
[2018-09-23 18:59] VITALS: BP 136/77; PULSE 75; RESP 16; TEMP 98.5
== END 2018-09-23 19:00 | disposition home or self-care (01) ==
LOC: EC 16:17
DX: S49.91XA Unspecified injury of right shoulder and upper arm, initial encounter (principal); F17.200 Nicotine dependence, unspecified, uncomplicated; Z79.899 Other long term (current) drug therapy; Z88.6 Allergy status to analgesic agent; W00.0XXA Fall on same level due to ice and snow, initial encounter
CPT/HCPCS: 72050; 73030; 99283; 96372; L3670; J1885